=== PATIENT | female | born 2000 | race African-American/Black ===

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

== ENCOUNTER 2022-02-24 13:50 | Outpatient (CLI) | payer OTHER, SELFPAY ==
[2022-02-24 14:03] VITALS: TEMP 36.4
[2022-02-24 14:04] VITALS: BP 117/66; PULSE 99
[2022-02-24 14:10] VITALS: BMI 32.4
[2022-02-24 14:52] LABS: ROM Internal Control Test YES-OK TO RESULT pt. (Internal QC); ROM Patient Test Negative (Negative)
--- NOTE | 2022-02-25 10:22 | OB.TRI.PN_ITS ---
Progress Notes Date of Service: 02/24/22 Progress Note: Presented to labor and delivery with possible rupture of me mbranes. No contractions. No vaginal bleeding. O: NST 135 moderate variablity, accels, reactive Laboratory Studies: Laboratory Tests 02/24/22 Range/Units 14:20 Vag Amniotic Fld Detect Negative (Negative) 1) Rule out labor, ROM plus negative 2) Labor precautions reviewed 3) Discharge home
== END 2022-02-24 15:08 | disposition home or self-care (01) ==
LOC: WPOUT 13:57 → WP 13:57
PROVIDERS: Visit Provider Advanced Practice Midwife
DX: Z34.90 Encounter for supervision of normal pregnancy, unspecified, unspecified trimester (principal); Z3A.00 Weeks of gestation of pregnancy not specified
CPT/HCPCS: 59025; 59050; 84112; 99218; G0378

== ENCOUNTER 2022-03-08 16:00 | Outpatient (CLI) | payer OTHER, SELFPAY ==
[2022-03-08] VITALS (8 sets, daily range): BP systolic 122–150; BP diastolic 74–97; PULSE 57–89; TEMP 36.6; O2SAT 98; BMI 32.6
--- NOTE | 2022-03-08 17:50 | OB.TRI.NOTE ---
HPI - General General Date of Admission: 03/08/22 Date of Service: 03/08/22 Chief Complaint: induction of labor HPI Narrative MARIANA GLORIA, is a 21 F nulliparrous who presents for induction of labor for approx 41 weeks. Presents for outpatient cervical ripening today, induction w/ pit/arom in am. Denies VB/LOF. good FM Maternal Data Information Final CONCHITA: 03/03/22 Gestational age: 40 5/7 PFSH PFSH Home Medications aspirin 81 mg chewable tablet 81 mg PO DAILY 02/24/22 [History Last Taken 03/08/22 09:00 81 mg] ferrous gluconate 325 mg (36 mg iron) tablet 324 mg PO DAILY iron supplement 02/24/22 [History Last Taken 02/23/22 10:00 325 mg] vpfvdsaw-wxv-Xe-FA 1 mg tablet 1 tab PO DAILY 02/24/22 [History Last Taken 03/08/22 09:00 1 tab] Allergy/AdvReac Type Severity Reaction Status Date / Time No Known Allergies Allergy Verified 02/24/22 14:10 Social History Smoking Status: Current every day smoker Physical Exam Narrative cervix 160/3, medium consistency , mid position, vtx fetus NST FHR Rate Baby A Baseline: 130 Variability:: Moderate Accelerations:: 15 x 15 Decelerations:: None NST Reactive:: Yes FHR Category:: Category I Uterine Activity:: no regular ctxs Assessment & Plan (1) Encounter for induction of labor: PLAN: Estimated weight is less than 4000 g clinically and pelvis is clinically adequate to expect vaginal delivery. Risk benefits and alternatives to outpatient Hernandez catheter cervical ripening with planned return for induction of labor with Levon tony tomorrow was discussed with the patient, questions were answered to her satisfaction she desires to proceed. Return tonight if spontaneous rupture membranes, active labor or other concerns. Patient stated understanding and agreement with the plan and consent was signed Procedure note: The Hernandez catheter was placed over a stylette and placed through the internal cervical os manually. The balloon was inflated to 30 cc with sterile saline. Placement over the internal os was confirmed. Patient and fetus tolerated the procedure well. Discharged home after 1 hour if heart tones are category 1. (2) 40 weeks gestation of : (3) Nulliparity:
[2022-03-08] MEDS: 0.9% Normal Saline Single 100 ML IV.SOLN. INTRA-UTER (17:52)
== END 2022-03-08 19:10 | disposition home or self-care (01) ==
LOC: WPOUT 16:57 → WP 18:48
PROVIDERS: Visit Provider Obstetrics & Gynecology
DX: O80 Encounter for full-term uncomplicated delivery (principal); Z3A.40 40 weeks gestation of pregnancy; F17.200 Nicotine dependence, unspecified, uncomplicated; Z79.82 Long term (current) use of aspirin
CPT/HCPCS: 59050; 99218; G0378

== ENCOUNTER 2022-03-09 07:05 | Inpatient (IN) | payer OTHER, SELFPAY ==
[2022-03-09] VITALS (46 sets, daily range): BP systolic 106–154; BP diastolic 55–101; PULSE 8–141; RESP 14–18; TEMP 36.4–37.4; O2SAT 89–100; BMI 32.5
[2022-03-09] MEDS: Lactated Ringers 1,000 ML 50 ML IV (07:50)
[2022-03-09 08:09] LABS: Absolute Lymphocyte Count 2.58 X10^3/uL (0.83-4.51); Basophil# 0.03 X10^3/uL; Basophil% 0.3 % (0-1); Eosinophil# 0.01 X10^3/uL; Eosinophils% 0.1 % (0-5); Hematocrit 31.6 % (37-47); Hemoglobin 10.3 g/dL (12.0-15.0); Lymphocyte # 2.58 X10^3/ul (0.83-4.51); Lymphocyte % 22.6 % (19-41); Mean Corp Hgb Conc 32.6 g/dL (32-36); Mean Corpuscular Hgb 25.8 pg (27.0-32.0); Mean Platelet Vol. 8.8 fl (6.2-12.0); Monocyte# 0.71 X10^3/uL; Monocyte% 6.2 % (0-10); NRBC Flagged by Analyzer 0 % (0-5); Neutrophil # 8.03 X10^3/uL (2.7-7.7); Neutrophil % 70.4 % (47-70); Platelet Count 378 K/mm3 (150-450); RBC Distribution Width CV 14.2 % (11.6-14.6); RBC Distribution Width SD 40.3 fl (35.1-43.9); White Blood Count 11.4 K/mm3 (4.4-11.0)
[2022-03-09] MEDS: Oxytocin 30 units/NS 500 ml 30 UNITS/500 ML IV.SOLN IV (08:27)
--- NOTE | 2022-03-09 08:38 | HP.PCM.OB_ITS ---
HPI - General General Date of Admission: 03/09/22 Chief Complaint: Induction of labor HPI Narrative MARIANA GLORIA, is a 21 F who presents werner induction. Maternal Data Information Final CONCHITA: 03/03/22 Gestational age: 40&6 PFSH [facility] Medical History Anemia affecting Anxiety Depression Home Medications aspirin 81 mg chewable tablet 81 mg PO DAILY 02/24/22 [History Last Taken 03/08/22 09:00 81 mg] ferrous gluconate 325 mg (36 mg iron) tablet 324 mg PO DAILY iron supplement 02/24/22 [History Last Taken 02/23/22 10:00 325 mg] voopepar-wti-Jd-FA 1 mg tablet 1 tab PO DAILY 02/24/22 [History Last Taken 03/08/22 09:00 1 tab] Allergy/AdvReac Type Severity Reaction Status Date / Time No Known Allergies Allergy Verified 03/09/22 07:18 Social History Smoking Status: Light Smoker (<10/day) History Elective abortions Hx Para 0 Spontaneous abortions Hx # Term Pregnancies Ectopic pregnancies Hx # Pregnancies Multiple births # of living children NST FHR Rate Baby A Baseline: 135 Variability:: Moderate Accelerations:: 15 x 15 Decelerations:: None Uterine Activity:: Irritability Vital Signs Vital Signs Vital Signs: 03/09/22 07:31 03/09/22 07:31 03/09/22 07:31 Temperature Temperature Source Temporal Pulse Rate 80 Blood Pressure 129/85 H BP Systolic 129 BP Diastolic 85 03/09/22 07:31 03/09/22 08:27 03/09/22 08:27 Temperature 97.9 F Temperature Source Pulse Rate 87 Blood Pressure 132/78 H BP Systolic 132 BP Diastolic 78 Weight Weight: 161 lb 6.054 oz Body Mass Index (BMI) 32.5 Physical Exam Const General Appearance: cooperative and comfortable Resp normal respiratory effort GI soft to palpation, non-tender and non-distended GI Narrative: Gravid external exam normal Narrative: cvx - 4/70/-2 Extremity normal to inspection Labs Labs Labs: Blood Type Pending Antibody Screen Pending Hct 31.6 % (37-47) L Hgb 10.3 g/dL (12.0-15.0) L See [facility] H&P Assessment & Plan (1) Encounter for induction of labor: PLAN: @ 40&6 Admit to L&D Induction for post-dates - s/p intracervical ross bulb. AROM clear amniotic fl uid. Pitocin started. GBS positive COVID negative EFW - less than 4500g, patient with adequate pelvis Pain - epidural as desired Routine care
[2022-03-09] MEDS: LACTATED RINGERS 500 ML 999 ML IV ×3 (09:44→14:30)
[2022-03-09] MEDS: Ondansetron 4 MG/2 ML Vial IV (09:50)
[2022-03-09] MEDS: fentaNYL-bupivacaine (epidural) 100 ML BAG EPIDURAL ×2 (10:25→14:58)
[2022-03-09] MEDS: Penicillin G 3,000,000 Units 50 ML 100 UNITS IV (12:32)
[2022-03-09] MEDS: Lactated Ringers 1,000 ML 200 ML IV (14:21)
[2022-03-09] MEDS: Sodium Citrate/Citric Acid 30 ML UDC PO (16:37)
--- NOTE | 2022-03-09 16:41 | OP.PCM_ITS ---
Details Operative Information Date of Procedure: 03/09/22 Pre-Operative Diagnosis: Non reassuring heart tracing Post-Operative Diagnosis: Same Indications for : Nonreassuring Status Indications Narrative: The patient was taken to the operating room where epidural anesthesia was dosed & found to be adequate. She was prepped and draped in the dorsal supine position with a leftward tilt. A Pfannenstiel skin incision was made approximately 2 cm above the symphysis pubis and carried through to the underlying fascia with the scalpel. The fascia was incised incised in the midline and extended laterally with the Dominguez scissors. The rectus muscles were in the midline and the peritoneum was entered carefully and bluntly. The peritoneal incision was stretched and the bladder blade was inserted. Vesicouterine peritoneum was tented up, incised & then bladder flap created gently. The uterine incision was made in a low transverse fashion with the scalpel and extended superiorly and inferiorly with blunt dissection. The infant's head was brought to the incision in the flexed position and delivered without difficulty. The head was gently guided to allow delivery of the anterior and posterior shoulders. The body then delivered with fundal pressure in the standard fashion. The 3VC cord was clamped and cut. The was handed off to the waiting pediatric sports medicine specialist. The placenta was delivered with fundal massage and gentle traction in the standard fashion. The uterus was exteriorized and cleared of clots and debris. Pitocin started & methergine given IM to obtain good uterine tone. The uterine incision was closed with #1 Vicryl suture in a running locked fashion. Monocryl suture was used in an imbricating fashion. 3 additional 3-0 vicryl figure of eight sutures placed to obtain excellent hemostasis. The incision was examined and was found to be hemostatic. The uterus was returned to the abdominal cavity. After irrigating Olivier was placed over the uterine incision as some areas were denuded (but hemostatic). The peritoneum was closed with vicryl suture in running fashion The rectus muscle was examined and any bleeding was Bovie caut erized. The fascia was closed with PDS suture in a running standard fashion. The subcutaneous tissue was examining and any bleeding was Bovie cauterized. The subcutaneous tissue was reapproximated with interrupted sutures. The skin was closed in a subcuticular fashion by the LANDSCAPE ARCHITECT AND PLANNER while I was present in the labor & delivery unit. The remainder of the procedure was performed by me with assistance. All sponge, lap, and needle counts were correct. The patient was taken to her room for recovery in a stable condition. 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 #1: Claudia Padilla Type of Anesthesia: Epidural Antibiotic Given: Ancef 2 grams IV x1 Drain: Hernandez to straight drain Estimated Blood Loss: 900ml Procedure Start Time: 17:28 Procedure Stop Time: 18:28 Findings Description of Procedure: Normal maternal uterus and adnexa Presentation: Positive for Vertex Amniotic Membrane Rupture Type: Artificial Amniotic Fluid Description: Clear Placental Delivery Description: Expressed Placenta Disposition: [facility] Specimen(s) Sent to Pathology: None Cord Vessel Description: 3 Vessels Cord Entanglement: None Cord Gases: ABG and VBG Infant A Gender: Male (Chuckie, weight = 8-1) (1 minute): 2 (5 minute): 8 (9 at 10 minutes) Delayed Cord Clamping: No Complications Complications: None
[2022-03-09] MEDS: Cefazolin 2 GM in 0.9% Normal Saline 100 ML IV (17:08)
[2022-03-09] MEDS: Methylergonovine 0.2 MG/ML Ampul IM (17:34)
[2022-03-09] MEDS: Oxytocin 30 units/NS 500 ml 30 UNITS/500 ML IV.SOLN 167 UNITS IV (18:45)
--- NOTE | 2022-03-09 19:09 | NURSING ---
this RN contacted pharmacy to ask for new orders to be verified in order to administer first dose of toradol. [facility] pharmacist is in retail pharmacy at this time and will verify meds when back to inpatient pharmacy.
[2022-03-09] MEDS: 0.9% Saline Lock 10 ML Syringe IV (19:39)
[2022-03-09] MEDS: Ketorolac 30 MG/ML Syringe IV (19:40)
[2022-03-09] MEDS: Acetaminophen 500 MG Tablet 1000 MG PO (20:34)
--- NOTE | 2022-03-09 21:01 | NURSING ---
epidural catheter removed. pt tolerated well. blue tip intact.
[2022-03-09] MEDS: Lactated Ringers 1,000 ML 100 ML IV (21:46)
[2022-03-10] VITALS (8 sets, daily range): BP systolic 100–122; BP diastolic 41–77; PULSE 76–91; RESP 14–16; TEMP 36.4–36.6; O2SAT 96–99
[2022-03-10] MEDS: Ketorolac 30 MG/ML Syringe IV ×3 (01:44→14:15)
[2022-03-10] MEDS: 0.9% Saline Lock 10 ML Syringe IV ×3 (01:44→14:16)
[2022-03-10] MEDS: Acetaminophen 500 MG Tablet 1000 MG PO ×4 (01:45→20:18)
[2022-03-10] MEDS: Enoxaparin 40 MG/0.4 ML Syringe SC (06:30)
[2022-03-10 06:32] LABS: Hematocrit 27.5 % (37-47); Hemoglobin 8.6 g/dL (12.0-15.0); Mean Corp Hgb Conc 31.3 g/dL (32-36); Mean Corpuscular Hgb 25.7 pg (27.0-32.0); Mean Corpuscular Volume 82.1 fL (81-99); Mean Platelet Vol. 8.5 fl (6.2-12.0); Platelet Count 273 K/mm3 (150-450); RBC Distribution Width CV 14.5 % (11.6-14.6); RBC Distribution Width SD 42.9 fl (35.1-43.9); Red Blood Count 3.35 M/mm3 (4.2-5.4); White Blood Count 17.3 K/mm3 (4.4-11.0)
--- NOTE | 2022-03-10 06:47 | NURSING ---
this RN removed ross cath at 0630. 600cc urine drained. clear, yellow urine noted in tube prior to removal. 10 cc NS removed with syringe. pt tolerated well.
[2022-03-10 07:02] LABS: ALB/GLOB Ratio 0.5 RATIO (0.9-2.4); AST(SGOT) 46 U/L (15-37); Alanine Aminotransfer ALT/SGPT 57 U/L (13-56); Albumin, Serum 1.6 g/dL (3.2-5.0); Alkaline Phosphatase 226 U/L (45-117); Anion Gap 6 (5-15); BUN 11 mg/dL (7-18); BUN/Creat Ratio 10.5 RATIO (10-20); Calcium,Total 8.2 mg/dL (8.5-10.1); Chloride 107 mmol/L (98-107); Creatinine, Serum 1.05 mg/dL (0.55-1.02); EST Glomerular Filtration Rate 69 mL/min (>60); Est Glom Filt Rate - Afr Amer 84 mL/min (>60); Estimated Creatinine Clearance 97.12 ml/min; Globulin 3.5 g/dL (2.2-4.2); Glucose 108 mg/dL (74-106); Potassium 3.9 mmol/L (3.5-5.1); Protein, Total 5.1 g/dL (6.4-8.2); Sodium Level 137 mmol/L (136-145)
--- NOTE | 2022-03-10 10:45 | CASEMGMT ---
Social Work Labor and delivery unit Date/Time: Referral: 03/09/22 22:03 Referred by: Evelio Patel Reason for Referral: hx anxiety,depression Date/Time of intervention: 03/10/22, 10:20am History obtained from: DONALDO Household composition: MOB, FOJaneen, and now son Dee. This is their first child. They have been together for 6 years. Parent/Guardian Status: MOB and FOB guardians of child Medical History: Baby: Born 03/09/22 17:31, 3660 grams. Apgars 2,8 and 9 at 1,5 and 10 minutes. Baby has a cardiac murmur, econium in amniotic fluid, slow transition to extrauterine life Educational Status: Both MOB and FOB completed high school. Financial Status: No financial concerns. 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 MOB plans to return to work, SAMANTHA's mother will watch the baby Infant supplies: They have what they need for the baby including car seat, crib, clothing, diapers, breast pump, all other needed supplies. DONALDO plans to breast feed. She has access to bottles and formula if needed. Caregivers/Support: DONALDO reports her ocgiif-td-dxo, her step mom and her father all to be supportive. She states she also has extended family to be supportive. Transportation: They have 2 vehicles Programs/Agencies/Legal/Children's Services: DONALDO states has food stamps and plans to look into getting [facility] Behavioral Health Issues: DONALDO reports history of depression anxiety, she has never taken medication. She tried counseling once when 15 but did not find it helpful. She states if she were to need it now she would go to counseling. She states she was a little anxious prior to delivery but now is managing well. She reports FOB to have some depression. She denies any substance abuse concerns. No toxicology screens completed on MOB or baby on this admission. MOB also denies any safety concerns. Depression and Anxiety/Shaken Baby/Safe Sleeping/Help Me Grow/[facility] Resources/Mental Health resources: GWEN gave MOB resources on all of the above and reviewed the resources. SW reviewed in particular information on depression and anxiety and warning signs. GWEN also explained that if MOB experiencing symptoms to speak w/her physician about it. We spoke about both medication and counseling, and that her physician can speak w/her about these options should she have any symptoms. SW also pointed out to MOB the mental health hotlines should either of them be in crisis. List of mental health resources also provided. Family/Social Stressors: None reported Assessment: MOB appropriate, answered all questions. MOB holding baby and appropriate in care. She has no concerns for homegoing. No further social services technician needs anticipated at this time. Plan: Baby to go home w/MOB and FOB at discharge. POLINA Montano
[2022-03-10] MEDS: Senna/Docusate Sodium 1 Tablet PO (11:17)
[2022-03-10] MEDS: Prenatal Vits Tablet 1 TABLET PO (11:24)
--- NOTE | 2022-03-10 19:05 | PCM.PN.OB ---
Subjective Subjective Pain controlled. Denies complaints Objective Data Objective Data Vital Signs: Vital Signs Temp Pulse Resp BP Pulse Ox 97.7 F L 77 16 103/55 L 99 03/10/22 16:20 03/10/22 16:20 03/10/22 16:20 03/10/22 16:20 03/10/22 16:20 Oxygen Delivery Method Room Air Weight: 161 lb 6.054 oz Body Mass Index (BMI) 32.5 Intake & Output: Intake and Output for Last 24 Hours 03/08/22 03/09/22 03/10/22 23:59 23:59 23:59 Intake Total 4439.65 / 4439.65 1273.33 / 1273.33 Output Total 600 / 600 1100 / 1100 Balance 3839.65 / 3839.65 173.33 / 173.33 Lab / Micro Data Result Diagrams: 03/10/22 06:25 03/10/22 06:25 Labs: Laboratory Results - last 24 hr 03/10/22 06:25: WBC 17.3 H, RBC 3.35 L, Hgb 8.6 L, Hct 27.5 L, MCV 82.1, MCH 25.7 L, MCHC 31.3 L, RDW Std Deviation 42.9, RDW Coeff of Booker 14.5, Plt Count 273, MPV 8.5 03/10/22 06:25: Sodium 137, Potassium 3.9, Chloride 107, Carbon Dioxide 24.0, Anion Gap 6, BUN 11, Creatinine 1.05 H, Estim Creat Clear Calc 97.12, Est GFR (MDRD) Af Amer 84, Est GFR (MDRD) Non-Af 69, BUN/Creatinine Ratio 10.5, Glucose 108 H, Calcium 8.2 L, Total Bilirubin 0.70, AST 46 H, ALT 57 H, Alkaline Phosphatase 226 H, Total Protein 5.1 L, Albumin 1.6 L, Globulin 3.5, Albumin/Globulin Ratio 0.5 L Micro: Microbiology 03/09/22 07:35 Nasal Secretion SARS-CoV-2 Antigen (Rapid) - Final Physical Exam Const alert, oriented x3 and no apparent distress HEENT normocephalic GI soft to palpation, non-tender and non-distended GI Narrative: fundus firm, mid & below umbilicus Incision - bandage c/d/i Extremity normal to inspection and no calf tenderness Assessment & Plan (1) Delivery by section: COMMENT: POD#1 PLAN: Anemia of - reviewed CBC. Will resume PO iron. ID - AF, no signs infection - ADAT - no issues BP's normal for almost 24 hours. Elevated BP's during & just after delivery attributed to methergine. Repeat CMP tomorrow as AST & AFT with minimal elevation.
[2022-03-10] MEDS: Ibuprofen 600 MG Tablet PO (20:17)
[2022-03-11] MEDS: Acetaminophen 500 MG Tablet 1000 MG PO ×3 (01:50→14:01)
[2022-03-11] MEDS: Ibuprofen 600 MG Tablet PO ×3 (01:50→14:01)
[2022-03-11 01:51] VITALS: BP 120/65; PULSE 74; RESP 18; TEMP 36.6; O2SAT 98
[2022-03-11] MEDS: Enoxaparin 40 MG/0.4 ML Syringe SC (06:10)
[2022-03-11 06:59] LABS: Absolute Lymphocyte Count 2.71 X10^3/uL (0.83-4.51); Absolute Neutrophil Count 14.3 X10^3/uL (2.0-7.7); Basophil# 0.05 X10^3/uL; Basophil% 0.3 % (0-1); Eosinophil# 0.05 X10^3/uL; Eosinophils% 0.3 % (0-5); Hematocrit 24.5 % (37-47); Hemoglobin 7.6 g/dL (12.0-15.0); Lymphocyte # 2.71 X10^3/ul (0.83-4.51); Lymphocyte % 14.4 % (19-41); Mean Corpuscular Hgb 25.4 pg (27.0-32.0); Mean Corpuscular Volume 81.9 fL (81-99); Mean Platelet Vol. 8.9 fl (6.2-12.0); Monocyte# 1.24 X10^3/uL; Monocyte% 6.6 % (0-10); NRBC Flagged by Analyzer 0 % (0-5); Neutrophil # 14.28 X10^3/uL (2.7-7.7); Neutrophil % 75.8 % (47-70); POSITIVE MORPHOLOGY YES; Platelet Count 296 K/mm3 (150-450); RBC Distribution Width CV 14.5 % (11.6-14.6); RBC Distribution Width SD 42.7 fl (35.1-43.9); Red Blood Count 2.99 M/mm3 (4.2-5.4); White Blood Count 18.8 K/mm3 (4.4-11.0)
[2022-03-11 07:12] LABS: ALB/GLOB Ratio 0.5 RATIO (0.9-2.4); AST(SGOT) 30 U/L (15-37); Alanine Aminotransfer ALT/SGPT 40 U/L (13-56); Albumin, Serum 1.6 g/dL (3.2-5.0); Alkaline Phosphatase 182 U/L (45-117); Anion Gap 7 (5-15); BUN 12 mg/dL (7-18); BUN/Creat Ratio 17.1 RATIO (10-20); Calcium,Total 8.2 mg/dL (8.5-10.1); Chloride 107 mmol/L (98-107); EST Glomerular Filtration Rate 111 mL/min (>60); Est Glom Filt Rate - Afr Amer 134 mL/min (>60); Estimated Creatinine Clearance 145.67 ml/min; Globulin 3.4 g/dL (2.2-4.2); Glucose 69 mg/dL (74-106); Potassium 4.2 mmol/L (3.5-5.1); Sodium Level 136 mmol/L (136-145)
[2022-03-11 07:19] LABS: Differential Indicated SCAN CRITERIA MET
[2022-03-11 07:21] LABS: Atypical Lymphocyte 1+ %
[2022-03-11 08:32] VITALS: BP 113/68; PULSE 78; RESP 16; TEMP 36.7; O2SAT 96
[2022-03-11] MEDS: Prenatal Vits Tablet 1 TABLET PO (11:15)
[2022-03-11] MEDS: Senna/Docusate Sodium 1 Tablet PO (11:15)
--- NOTE | 2022-03-11 13:25 | PN.OBGYN_ITS ---
Subjective Subjective Pain controlled Objective Data Objective Data Vital Signs: Vital Signs Temp Pulse Resp BP Pulse Ox 98.1 F 78 16 113/68 96 03/11/22 08:32 03/11/22 08:32 03/11/22 08:32 03/11/22 08:32 03/11/22 08:32 Oxygen Delivery Method Room Air Weight: 161 lb 6.054 oz Body Mass Index (BMI) 32.5 Intake & Output: Intake and Output for Last 24 Hours 03/09/22 03/10/22 03/11/22 23:59 23:59 23:59 Intake Total 4439.65 / 4439.65 1273.33 / 1273.33 Output Total 600 / 600 1100 / 1100 Balance 3839.65 / 3839.65 173.33 / 173.33 Lab / Micro Data Result Diagrams: 03/11/22 06:40 03/11/22 06:40 Labs: Laboratory Results - last 24 hr 03/11/22 06:40: Sodium 136, Potassium 4.2, Chloride 107, Carbon Dioxide 22.0, Anion Gap 7, BUN 12, Creatinine 0.70, Estim Creat Clear Calc 145.67, Est GFR (MDRD) Af Amer 134, Est GFR (MDRD) Non-Af 111, BUN/Creatinine Ratio 17.1, Glucose 69 L, Calcium 8.2 L, Total Bilirubin 0.20, AST 30, ALT 40, Alkaline Phosphatase 182 H, Total Protein 5.0 L, Albumin 1.6 L, Globulin 3.4, Albumin/Nayely bulin Ratio 0.5 L 03/11/22 06:40: WBC 18.8 H, RBC 2.99 L, Hgb 7.6 L, Hct 24.5 L, MCV 81.9, MCH 25.4 L, MCHC 31.0 L, RDW Std Deviation 42.7, RDW Coeff of Booker 14.5, Plt Count 296, MPV 8.9, Immature Gran % (Auto) 2.600 H, Neut % (Auto) 75.8 H, Lymph % (Auto) 14.4 L, [place] % (Auto) 6.6, Eos % (Auto) 0.3, Baso % (Auto) 0.3, Absolute Neuts (auto) 14.3 H, Absolute Lymphs (auto) 2.71, Nucleated RBC % 0, Atypical Lymphocytes 1+ Micro: Microbiology 03/09/22 07:35 Nasal Secretion SARS-CoV-2 Antigen (Rapid) - Final Physical Exam Const alert, oriented x3 and no apparent distress HEENT normocephalic GI soft to palpation, non-tender and non-distended GI Narrative: fundus firm, mid & below umbilicus Incision - bandage c/d/i Extremity normal to inspection and no calf tenderness Assessment & Plan (1) Delivery by section: COMMENT: POD#2 PLAN: Heme - HDS. CBC reviewed & Hb decreased to 7.6. Will continue iron for anemia of . ID - AF, no symptoms infection GI/ - no issues D/c to home today per patient request
--- NOTE | 2022-03-11 13:27 | DCINST_ITS ---
Discharge Instructions Diet Discharge Diet: No restrictions Activity Discharge Activity: May Shower May resume sexual activity in: 6 weeks Weight Bearing Status: Weight bearing as tolerated Dressing / Incision Call your doctor if your incision/area has: Continuous Slow Oozing, Sudden Increased Bleeding, Increased Pain/ Swelling, Increased Redness, Foul Smelling Discharge and Swelling at the incision site Call your doctor if you observe: Fever of 101 or Higher, Coldness, Increased Pain, Change in Color, Inability to urinate, Inability to have a bowel movement, Using more than 1 pad per hour, Shortness of breath, Dizziness, Fainting spells, Chest pain, Increased palpitations (irregular heartbeat), Calf discomfort and Uncontrolled pain Suture Line Care: Avoid Pulling/Pushing and Avoid Pinching/Bending Remove Dressing in: 1 week Cleanse incision/area with: Soap & Water Follow Up Care Please Follow Up With: Evelio Patel MD When: Follow up in 2 and 6 weeks for visits. Test Results: Test results from this visit will be discussed in further detail at your follow- up appointment, if applicable. Discharge Plan Admission Admit Date/Time: 03/09/22 07:05 Primary Reason for Your Visit: section Attending Provider: Evelio Patel Primary Care Provider: Katelyn Roberts Primary Discharge Orders/Prescriptions Prescriptions: New acetaminophen 500 mg Tablet 1,000 mg PO Q6H PRN (Reason: fever or pain) Qty: 60 0RF ibuprofen 600 mg Tablet 600 mg PO Q6 PRN (Reason: Abdominal Pain) Qty: 60 0RF Continued fkmdwuup-tms-Zv-FA 1 mg Tablet 1 tab PO DAILY ferrous gluconate 325 mg (36 mg iron) Tablet 324 mg PO DAILY Discontinued aspirin [Baby Aspirin] 81 mg Tablet,Chewable 81 mg PO DAILY Referrals / Follow Up: Care PhysicianKatelyn Primary [Primary Care Provider] - Disposition Disposition (needs filled in before D/C Order can be placed): Home, Self Care
[2022-03-11 14:03] VITALS: BP 120/81; PULSE 90; RESP 16; TEMP 36.6; O2SAT 99
== END 2022-03-11 16:25 | disposition home or self-care (01) | DRG 788 ==
PROVIDERS: Obstetrics & Gynecology; Admitting Provider Obstetrics & Gynecology; Referring Provider Obstetrics & Gynecology; Visit Provider Obstetrics & Gynecology
DX: O76 Abnormality in fetal heart rate and rhythm complicating labor and delivery (principal); D64.9 Anemia, unspecified; F17.200 Nicotine dependence, unspecified, uncomplicated; O48.0 Post-term pregnancy; Z37.0 Single live birth; O99.824 Streptococcus B carrier state complicating childbirth; O99.334 Smoking (tobacco) complicating childbirth; Z79.82 Long term (current) use of aspirin; O99.02 Anemia complicating childbirth; Z3A.40 40 weeks gestation of pregnancy
CPT/HCPCS: 59025; 59050; 80053; 84112; 85025; 85027; 86850; 86900; 86901; 87426; 99218; 99406; J7120; A4216; G0378; J2405